=== PATIENT | female | born 1995 | race Hispanic/Latino ===

== ENCOUNTER 2022-02-14 06:57 | Inpatient (IN) | payer SELFPAY ==
[2022-02-14 07:41] LABS: Urine Blood Negative (Negative); Urine Glucose Negative (Negative); Urine Protein Negative (Negative); Urine pH 7.5 (5.0-7.0)
[2022-02-14 07:45] LABS: Absolute Lymphocytes (CBC) 2.5 K/uL (0.7-4.9); Hematocrit 38.4 % (36.0-45.0); Lymphocytes % 20.7 % (15.3-44.8); MPV 8.9 fL (7.6-11.3); RBC Red Blood Cell Count 4.58 M/uL (3.86-4.86)
[2022-02-14] MEDS ORDERED: MORPHINE 4 MG/ML SYR ONE ×2 (07:47→13:58)
[2022-02-14] MEDS ORDERED: NA CHLORIDE 0.9% 1,000 ML ONE (07:47)
[2022-02-14] MEDS ORDERED: ONDANSETRON 4 MG/2 ML VIAL ONE (07:47)
[2022-02-14] MEDS ORDERED: FAMOTIDINE 20 MG/2 ML VIAL IV ONE (07:47)
[2022-02-14 08:06] LABS: Albumin 3.9 g/dL (3.4-5.0); Bilirubin Total 0.2 mg/dL (0.2-1.0); Potassium 3.8 mmol/L (3.5-5.1); Protein, Total 7.9 g/dL (6.4-8.2)
[2022-02-14 08:09] LABS: Urine Bacteria >50 /HPF (<20); Urine Mucus 1+ /HPF (NONE SEEN); Urine RBC <5 /HPF (NONE SEEN)
--- NOTE | 2022-02-14 10:56 | RAD REPORT ---
EXAM DESCRIPTION: CT - Abdomen Pelvis W Contrast - 02/14/2022 10:41 am CLINICAL HISTORY: Abdominal pain COMPARISON: none. TECHNIQUE: Computed axial tomography of the abdomen pelvis was obtained. 100 cc Isovue-300 was admin istered intravenously. Oral contrast was not requested which limits evaluation of bowel. All CT scans are performed using dose optimization technique as appropriate and may include automated exposure control or mA/KV adjustment according to patient size. FINDINGS: Gallbladder wall is mildly thickened. The liver, spleen, pancreas, adrenal and kidneys appear unremarkable. There is no evidence of diverticulitis. Normal appendix. 3.5 centimeter right ovarian cyst. 2 centimeter left ovarian cyst. No significant free fluid Small umbilical hernia IMPRESSION: Mild gallbladder wall thickening may indicate cholecystitis 3.5 centimeter right ovarian cyst. 2 centimeter left ovarian cyst. No significant free fluid
--- NOTE | 2022-02-14 13:17 | RAD REPORT ---
EXAM DESCRIPTION: US - Abdomen Exam Limited - 02/14/2022 1:02 pm CLINICAL HISTORY: Abdominal pain. COMPARISON: None. FINDINGS: Multiple gallstones. Mild gallbladder wall thickening The biliary tree is normal caliber. IMPRESSION: Cholelithiasis Mild gallbladder wall thickening may indicate cholecystitis
--- NOTE | 2022-02-14 13:48 | EDPHYS ---
Physician Documentation [facility] Name: Ahmet Rojas Age: 26 yrs Sex: Female : 1995 Arrival Date: 02/14/2022 Time: 07:00 Bed 28 Private MD: ED Physician Courtney Sepulveda HPI: 02/14 07:28 This 26 yrs old Female presents to ER via Ambulatory with complaints of Back ma2 Pain, Abdominal Pain. 07:28 86-year-old female healthy who presents with epigastric abdominal pain history of ma2 gallbladder stone, pain is mild intermittent epigastric right upper quadrant, no fever vomiting or diarrhea. No urinary symptoms.. 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 - Social history:: Smoking status: Patient denies any tobacco usage or history of. Patient/guardian denies using alcohol, street drugs, The patient lives with family. - Family history:: not pertinent. ROS: 07:28 Constitutional: Negative for fever, chills, and weight loss. ma2 07:28 All other systems are negative. Exam: 07:28 Constitutional: This is a well developed, well nourished patient who is awake, alert, ma2 and in no acute distress. Head/Face: Normocephalic, atraumatic. Eyes: Pupils equal round and reactive to light, extra-ocular motions intact. Lids and lashes normal. Conjunctiva and sclera are non-icteric and not injected. Cornea within normal limits. Periorbital areas with no swelling, redness, or edema. ENT: Nares patent. No nasal discharge, no septal abnormalities noted. Tympanic membranes are normal and external auditory canals are clear. Oropharynx with no redness, swelling, or masses, exudates, or evidence of obstruction, uvula midline. Mucous membranes moist. Neck: Trachea midline, no thyromegaly or masses palpated, and no cervical lymphadenopathy. Supple, full range of motion without nuchal rigidity, or vertebral point tenderness. No Meningismus. Chest/axilla: Normal chest wall appearance and motion. Nontender with no deformity. No lesions are appreciated. Cardiovascular: Regular rate and rhythm with a normal S1 and S2. No gallops, murmurs, or rubs. Normal PMI, no JVD. No pulse deficits. Respiratory: Lungs have equal breath sounds bilaterally, clear to auscultation and percussion. No rales, rhonchi or wheezes noted. No increased work of breathing, no retractions or nasal flaring. Abdomen/GI: Soft, non-tender, with normal bowel sounds. No distension or tympany. No guarding or rebound. No evidence of tenderness throughout. Back: No spinal tenderness. No costovertebral tenderness. Full range of motion. Skin: Warm, dry with normal turgor. Normal color with no rashes, no lesions, and no evidence of cellulitis. MS/ Extremity: Pulses equal, no cyanosis. Neurovascular intact. Full, normal range of motion. Neuro: Awake and alert, GCS 15, oriented to person, place, time, and situation. Cranial nerves II-XII grossly intact. Motor strength 5/5 in all extremities. Sensory grossly intact. Cerebellar exam normal. Normal gait. Vital Signs: 07:19 BP 120 / 85; Pulse 70; Resp 16; Temp 97; Pulse Ox 100% ; bp 08:26 Pulse 79; Resp 18 S; Pulse Ox 100% on R/A; jd3 12:17 Pulse 82; Resp 17 S; Pulse Ox 100% on R/A; jd3 14:06 BP 107 / 72; Pulse 63; Resp 18 S; Pulse Ox 99% on R/A; jd3 15:10 BP 123 / 64; Pulse 54; Resp 18 S; Pulse Ox 100% on R/A; jd3 16:58 BP 115 / 70; Pulse 60; Resp 18 S; Pulse Ox 99% on R/A; jd3 18:44 BP 105 / 63; Pulse 64; Resp 16 S; Pulse Ox 98% on R/A; jd3 MDM: 07:21 Patient medically screened. ma2 07:28 Differential diagnosis: Fracture sprain, Due to cholecystitis versus pancreatitis ma2 versus other stone. Data reviewed: vital signs, nurses notes. Counseling: I had a detailed discussion with the patient and/or guardian regarding: the historical points, exam findings, and any diagnostic results supporting the discharge/admit diagnosis, the presence of at least one elevated blood pressure reading (>120/80) during this emergency department visit, the need for outpatient follow up. Response to treatment: the patient's symptoms have markedly improved after treatment. 13:55 ED course: patient has patient has cholelithiasis needs GI, the service not available ma2 in our hospital today we will transfer to higher level of care. 16:28 ED course: Patient does not have choledocholithiasis, given patient has possible acute ma2 cholecystitis I discussed with Dr. Naranjo he accepted the patient advised to do Zosyn and n.p.o. and admit to his service. 02/14 07:24 Order name: CBC with Diff; Complete Time: 08:12 tx2 02/14 07:24 Order name: CMP; Complete Time: 08:12 [facility] 02/14 07:24 Order name: Lipase; Complete Time: 08:12 tx2 02/14 07:24 Order name: Urine Microscopic Only; Complete Time: 08:12 [facility] 02/14 07:41 Order name: Urine Dipstick-Ancillary; Complete Time: 08:12 EDCT 02/14 08:01 Order name: Urine --Ancillary (enter results); Complete Time: 10:13 eb 02/14 07:24 Order name: Abdomen Limited US; Complete Time: 13:40 tx2 02/14 08:13 Order name: Urine Culture [facility] 02/14 10:17 Order name: CT Abd/Pelvis - IV Contrast Only; Complete Time: 12:05 [facility] 02/14 14:18 Order name: SARS-COV-2 RT PCR (Document "Date of Onset" if Symptomatic); Complete Time: eb 16:00 02/14 16:35 Order name: Basic Metabolic Panel [facility] 02/14 16:35 Order name: Basic Metabolic Panel [facility] 02/14 16:35 Order name: CBC with Automated Diff [facility] 02/14 16:35 Order name: CBC with Automated Diff [facility] 02/14 07:24 Order name: IV Saline Lock; Complete Time: 07:24 tx2 02/14 07:24 Order name: Labs collected and sent; Complete Time: 07:24 tx2 02/14 07:24 Order name: Urine Test (obtain specimen); Complete Time: 08:14 [facility] 02/14 13:42 Order name: NPO; Complete Time: 13:44 ma2 02/14 16:35 Order name: NPO EDMS Administered Medications: 07:47 Drug: Zofran (Ondansetron) 4 mg Route: IVP; Site: right antecubital; jd3 08:40 Follow up: Response: No adverse reaction jd3 07:48 Drug: NS 0.9% 1000 ml Route: IV; Rate: 1 bolus; Site: right antecubital; jd3 12:36 Follow up: Response: No adverse reaction; IV Status: Completed infusion jd3 07:48 Drug: Pepcid (famotidine) 20 mg Route: IVP; Site: right antecubital; jd3 08:40 Follow up: Response: No adverse reaction jd3 07:48 Drug: morphine 4 mg Route: IVP; Site: right antecubital; jd3 08:40 Follow up: Response: No adverse reaction; RASS: Alert and Calm (0) jd3 14:05 Drug: morphine 4 mg Route: IVP; Site: right antecubital; jd3 18:47 Follow up: Response: No adverse reaction; RASS: Alert and Calm (0) jd3 14:06 Drug: Zosyn (piperacillin-tazobactam) 3.375 grams Route: IVPB; Infused Over: 60 mins; jd3 Site: right antecubital; 15:00 Follow up: Response: No adverse reaction; IV Status: Completed infusion jd3 14:06 Drug: D5-NS 1000 ml Route: IV; Rate: 125 ml/hr; Site: right antecubital; jd3 18:47 Follow up: Response: No adverse reaction; IV Status: Infusion continued upon admission jd3 Disposition Summary: 02/14/22 16:29 Hospitalization Ordered Hospitalization Status: Inpatient Admission ma2 Provider: Jimenez Naranjo maJake Condition: Stable(02/14/22 16:29) ma2 Problem: new(02/14/22 16:29) ma2 Symptoms: are unchanged(02/14/22 16:29) ma2 Bed/Room Type: Standard ma2 Location: [facility] ER HOLD(02/14/22 18:30) eb Room Assignment: ERHOLD-(02/14/22 18:30) eb Diagnosis - Acute cholecystitis(02/14/22 16:29) ma2 Forms: - Medication Reconciliation Form ma2 - SBAR form ma2 Signatures: Dispatcher [employer] EDMS Koby Membreno, DELIVERY TECHNICIAN-C DELIVERY TECHNICIAN-Cla1 Adam Swanson, RN RN Petar Kilpatrick RN RN bp Alzahri, Mohammad, MD MD ma2 Avril Foster Raymond, MD MD rn3 Corrections: (The following items were deleted from the chart) 16:28 13:47 gi ma2 ma2 16:28 13:47 [facility] ma2 ma2 16:28 13:47 Higher level of care ma2 ma2 16:28 13:47 Stable ma2 ma2 16:28 13:47 new ma2 ma2 16:28 13:47 are unchanged ma2 ma2 16:28 13:47 Other cholelithiasis without obstruction ma2 ma2 16:28 13:47 Acute cholecystitis ma2 ma2 18:30 16:29 Telemetry/MedSurg (Inpatient) ma2 eb 18:30 16:29 ma2 eb
--- NOTE | 2022-02-14 13:48 | ER ---
Nurse's Notes [facility] Name: Ahmet Rojas Age: 26 yrs Sex: Female : 1995 Arrival Date: 02/14/2022 Time: 07:00 Bed 28 Private MD: Diagnosis: Acute cholecystitis Presentation: 02/14 07:19 Chief complaint: Patient states: EPIGASTRIC PAIN TO R FLANK WITH N/V SINCE Y/D. bp Coronavirus screen: At this time, the client does not indicate any symptoms associated with coronavirus-19. Ebola Screen: No symptoms or risks identified at this time. Initial Sepsis Screen: Does the patient meet any 2 criteria? No. Patient's initial sepsis screen is negative. Does the patient have a suspected source of infection? No. Patient's initial sepsis screen is negative. Risk Assessment: Do you want to hurt yourself or someone else? Patient reports no desire to harm self or others. Onset of symptoms was February 13, 2022. 07:19 Method Of Arrival: Ambulatory bp 07:19 Acuity: MILLIE 3 bp Triage Assessment: 07:23 General: Appears distressed, uncomfortable, Behavior is cooperative, appropriate for bp age, anxious. Pain: Complains of pain in epigastric area Pain radiates to right flank. EENT: No deficits noted. Neuro: No deficits noted. Cardiovascular: No deficits noted. Respiratory: No deficits noted. GI: Abdomen is non-distended, Reports epigastric pain, nausea, vomiting. : Reports pain in right flank(s). Derm: No deficits noted. Musculoskeletal: Circulation, motion, and sensation intact. Range of motion:. 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 - Social history:: Smoking status: Patient denies any tobacco usage or history of. Patient/guardian denies using alcohol, street drugs, The patient lives with family. - Family history:: not pertinent. Screenin:26 Abuse screen: Denies threats or abuse. Denies injuries from another. Nutritional bp screening: No deficits noted. Tuberculosis screening: No symptoms or risk factors identified. Fall Risk None identified. Assessment: 07:25 General: Appears in no apparent distress. comfortable, Behavior is calm, cooperative, jd3 appropriate for age. Pain: Complains of pain in abdomen. Neuro: Shook Agitation-Sedation Scale (RASS): 0 - Alert and Calm Level of Consciousness is awake, alert, obeys commands, Oriented to person, place, time, situation. Cardiovascular: Capillary refill < 3 seconds Patient's skin is warm and dry. Respiratory: Airway is patent Respiratory effort is even, unlabored, Respiratory pattern is regular, symmetrical, Denies cough, shortness of breath. GI: No signs and/or symptoms were reported involving the gastrointestinal system. : No signs and/or symptoms were reported regarding the genitourinary system. EENT: No signs and/or symptoms were reported regarding the EENT system. Derm: Skin is intact, Skin is dry, Skin is normal, Skin temperature is warm. Musculoskeletal: Circulation, motion, and sensation intact. Range of motion: intact in all extremities. 07:26 General: SEE TRIAGE NOTE. bp 08:26 Reassessment: Patient appears in no apparent distress at this time. Patient and/or jd3 family updated on plan of care and expected duration. Pain level reassessed. Patient is alert, oriented x 3, equal unlabored respirations, skin warm/dry/pink. Patient states feeling better. 09:42 Reassessment: Patient appears in no apparent distress at this time. Patient and/or jd3 family updated on plan of care and expected duration. Pain level reassessed. Patient is alert, oriented x 3, equal unlabored respirations, skin warm/dry/pink. 10:48 Reassessment: Patient appears in no apparent distress at this time. Patient and/or jd3 family updated on plan of care and expected duration. Pain level reassessed. Patient is alert, oriented x 3, equal unlabored respirations, skin warm/dry/pink. returned from CT. awaiting ultrasound. 12:16 Reassessment: Patient appears in no apparent distress at this time. Patient and/or jd3 family updated on plan of care and expected duration. Pain level reassessed. Patient is alert, oriented x 3, equal unlabored respirations, skin warm/dry/pink. reports continued pain, provider notified. 13:40 Reassessment: Patient appears in no apparent distress at this time. Patient and/or jd3 family updated on plan of care and expected duration. Pain level reassessed. Patient is alert, oriented x 3, equal unlabored respirations, skin warm/dry/pink. awaiting results. 15:10 Reassessment: Patient appears in no apparent distress at this time. Patient and/or jd3 family updated on plan of care and expected duration. Pain level reassessed. Patient is alert, oriented x 3, equal unlabored respirations, skin warm/dry/pink. awaiting transfer. 16:57 Reassessment: Patient appears in no apparent distress at this time. Patient and/or jd3 family updated on plan of care and expected duration. Pain level reassessed. Patient is alert, oriented x 3, equal unlabored respirations, skin warm/dry/pink. awaiting admission. 18:44 Reassessment: Patient appears in no apparent distress at this time. Patient and/or jd3 family updated on plan of care and expected duration. Pain level reassessed. Patient is alert, oriented x 3, equal unlabored respirations, skin warm/dry/pink. awaiting admission. 19:27 Reassessment: The previous nurse gave report to the "ER Holding" nurse and the pt is to jason be moved to Pod #1. The nurse informed the pt of this, as well. Vital Signs: 07:19 BP 120 / 85; Pulse 70; Resp 16; Temp 97; Pulse Ox 100% ; bp 08:26 Pulse 79; Resp 18 S; Pulse Ox 100% on R/A; jd3 12:17 Pulse 82; Resp 17 S; Pulse Ox 100% on R/A; jd3 14:06 BP 107 / 72; Pulse 63; Resp 18 S; Pulse Ox 99% on R/A; jd3 15:10 BP 123 / 64; Pulse 54; Resp 18 S; Pulse Ox 100% on R/A; jd3 16:58 BP 115 / 70; Pulse 60; Resp 18 S; Pulse Ox 99% on R/A; jd3 18:44 BP 105 / 63; Pulse 64; Resp 16 S; Pulse Ox 98% on R/A; jd3 ED Course: 07:00 Patient arrived in ED. bp1 07:21 Courtney Sepulveda MD is Attending Physician. ma2 07:21 Triage completed. bp 07:23 Adam Swanson RN is Primary Nurse. jd3 07:23 Inserted saline lock: 20 gauge in right antecubital area, using aseptic technique. jd3 Blood collected. 07:23 Arm band placed on. bp 07:26 Patient has correct armband on for positive identification. Bed in low position. Call bp light in reach. Side rails up X2. Adult w/ patient. 08:46 Urine collected:. tm3 10:43 CT Abd/Pelvis - IV Contrast Only In Process Unspecified. EDMS 13:04 Abdomen Limited US In Process Unspecified. EDMS 14:19 initiated a transfer with Shaq Pillai Rn from the [facility]. eb 14:31 COVID swab sent to lab. tm3 16:29 Jimenez Naranjo MD is Hospitalizing Provider. ma2 19:29 Patient admitted, IV remains in place. jason 19:29 No provider procedures requiring assistance completed. jason Administered Medications: 07:47 Drug: Zofran (Ondansetron) 4 mg Route: IVP; Site: right antecubital; jd3 08:40 Follow up: Response: No adverse reaction jd3 07:48 Drug: NS 0.9% 1000 ml Route: IV; Rate: 1 bolus; Site: right antecubital; jd3 12:36 Follow up: Response: No adverse reaction; IV Status: Completed infusion jd3 07:48 Drug: Pepcid (famotidine) 20 mg Route: IVP; Site: right antecubital; jd3 08:40 Follow up: Response: No adverse reaction jd3 07:48 Drug: morphine 4 mg Route: IVP; Site: right antecubital; jd3 08:40 Follow up: Response: No adverse reaction; RASS: Alert and Calm (0) jd3 14:05 Drug: morphine 4 mg Route: IVP; Site: right antecubital; jd3 18:47 Follow up: Response: No adverse reaction; RASS: Alert and Calm (0) jd3 14:06 Drug: Zosyn (piperacillin-tazobactam) 3.375 grams Route: IVPB; Infused Over: 60 mins; jd3 Site: right antecubital; 15:00 Follow up: Response: No adverse reaction; IV Status: Completed infusion jd3 14:06 Drug: D5-NS 1000 ml Route: IV; Rate: 125 ml/hr; Site: right antecubital; jd3 18:47 Follow up: Response: No adverse reaction; IV Status: Infusion continued upon admission jd3 Medication: 07:26 VIS not applicable for this client. bp Outcome: 13:47 ER care complete, transfer ordered by . ma2 16:29 Decision to Hospitalize by Provider. ma2 19:29 Admitted to 19:29 Condition: stable 02/15 11:37 Patient left the ED. jd3 Signatures: Dispatcher [employer] EDMS Pilar Mannie 3 Adam Swanson RN RN jd3 Petar Hartley RN RN Courtney Sepulveda MD MD nj2 Avril Foster Brittany bp1 O'Farrell, Brenda, RN RN jason
[2022-02-14] MEDS ORDERED: NA CHLORIDE 0.9% 100 ML IV ONE (13:56)
[2022-02-14] MEDS ORDERED: D5 0.9 NS 1,000 ML IV ONE (13:57)
[2022-02-14] MEDS ORDERED: PIPERACIL/TAZO 3.375 GM VIAL IV ONE (13:57)
[2022-02-14] MEDS ORDERED: ACETAMINOPHEN 500 MG TAB PO PRN (16:30)
[2022-02-14] MEDS ORDERED: ONDANSETRON 4 MG/2 ML VIAL IV PRN (16:30)
[2022-02-14] MEDS ORDERED: MORPHINE 2 MG/ML SYR IV PRN (16:30)
[2022-02-14] MEDS: D5 0.45 NS 1,000 ML IV SCH (17:00)
[2022-02-14 23:38] VITALS: BMI 28.3
[2022-02-15] MEDS ORDERED: NA CHLORIDE 0.9% 100 ML IV ONE ×2 (00:59→10:07)
[2022-02-15] MEDS ORDERED: PIPERACIL/TAZO 3.375 GM VIAL IV ONE ×2 (00:59→08:16)
[2022-02-15] MEDS: PIPER TAZO 3.375 GM in NA CHLORIDE 0.9% 100 ML IV SCH ×2 (01:43→09:00)
[2022-02-15] MEDS: D5 0.45 NS 1,000 ML IV SCH (01:49)
[2022-02-15] MEDS ORDERED: D5 0.45 NS 1,000 ML IV ONE (01:53)
[2022-02-15] MEDS ORDERED: MORPHINE 2 MG/ML SYR ONE (02:55)
[2022-02-15 04:18] LABS: Hematocrit 36.8 % (36.0-45.0); Lymphocytes % 23.6 % (15.3-44.8); RBC Red Blood Cell Count 4.35 M/uL (3.86-4.86)
[2022-02-15 04:46] LABS: Potassium 3.4 mmol/L (3.5-5.1)
[2022-02-15] MEDS ORDERED: Ringers Lactate 1,000 ML IV ONE (09:17)
[2022-02-15] MEDS ORDERED: propofoL 200 MG/20 ML VIAL IV ONE (09:52)
[2022-02-15] MEDS ORDERED: LIDOCAINE 2% MPF 5 ML VIAL ONE (09:52)
[2022-02-15] MEDS ORDERED: ROCURONIUM 50 MG/5 ML VIAL IV ONE (09:52)
[2022-02-15] MEDS ORDERED: FENTANYL CITR 100 MCG/2 ML ONE (09:52)
[2022-02-15] MEDS ORDERED: MIDAZOLAM HCL 2 MG/2 ML INJ ONE (09:52)
[2022-02-15] MEDS ORDERED: ONDANSETRON 4 MG/2 ML VIAL ONE ×2 (09:52→11:33)
[2022-02-15] MEDS ORDERED: dexAMETHasone 10 MG/ML VIAL ONE (09:53)
[2022-02-15] MEDS ORDERED: CELECOXIB 100 MG CAPSULE ONE (10:02)
[2022-02-15] MEDS ORDERED: ACETAMINOPHEN 500 MG TAB ONE (10:02)
[2022-02-15] MEDS ORDERED: Mastisol Adhesive Liq ONE (11:02)
[2022-02-15] MEDS ORDERED: KETOROLAC 30 MG/ML INJ ONE (11:07)
[2022-02-15] MEDS ORDERED: NEOSTIGMINE 1 MG/ML -10 ML VIAL ONE (11:08)
[2022-02-15] MEDS ORDERED: GLYCOPYRROLATE 0.2 MG/ML SYR ONE (11:08)
[2022-02-15] MEDS: HYDROMORPHONE HCL 1 MG/ML INJ ONE ×2 (11:41→11:48)
[2022-02-15 11:46] VITALS: O2SAT 100
[2022-02-15] MEDS ORDERED: PROMETHAZINE INJ 25 MG/ML AMP ONE (12:04)
[2022-02-15] MEDS ORDERED: TRAMADOL HCL 50 MG TAB ONE (12:59)
[2022-02-15 13:51] VITALS: BP 123/74; TEMP 97.8
--- NOTE | 2022-02-15 21:09 | HP ---
Date of Admission: 02/14/2022 History Of Present Illness: This is a case of a 26-year-old patient who has been having abdominal pa in, epigastric, and right upper quadrant pain for the last several months. She got to the point last night that the pain got worse and she came to the ER, diagnosed with acute cholecystitis, symptomati c cholelithiasis, and a surgical consult was obtained for admission and cholecystectomy. She denies any dysuria, hematuria, hematochezia, melena, denies any recent travel to another country, denies any family member sick at home. The patient came to the ER, but despite the treatment, she still has a Maria sign, epigastric pain with nausea. That is why she was admitted. Allergies: NONE. Medications: Tramadol. Past Medical History: Gallstones. Past Surgical History: . Social History: She does not smoke. She does not drink alcohol. Family History: Noncontributory. Review of Systems: The patient is feeling nausea, bloating, and abdominal pain. Vomiting in the past and right upper qu adrant abdominal pain. Review of system ten-point is otherwise unremarkable. Physical Examination: General: The patient is awake, alert. HEENT: Pupils are equal and reactive. Anicteric. Neck: Supple. Chest: Clear. Heart: S1 and S2. Abdomen: Soft and depressible. Epigastric right upper quadrant pain with Maria sign positive. Breasts: Deferred. Pelvic: Deferred. Rectal: Deferred. Extremities: Good capillary refill. 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 Laboratory Data: Blood work shows WBC count of 12.2, hemoglobin of 12.8, platelets of 339. Sodium i s 135, creatinine is 0.69. Urine bacteria more than 50. Urine wbc count is 5 to 10. CAT scan of th e abdomen and pelvis and ultrasound interpreted by Dr. Hernandez as cholelithiasis and cholecystitis. Assessment: A 26-year-old patient comes to us with intractable right upper quadrant abdominal pain, acute cholecystitis, symptomatic cholelithiasis. Patient wants surgery done during this admission. She also has a small umbilical hernia. The benefits, alternatives, and risks of laparoscopic and pos sible open cholecystectomy fully explained which include, but not limited to infection, bleeding, dam age to adjacent structures, anesthesia complication, choledocholithiasis, bile leak, pancreatitis, RI , and . She also understands this may not relieve any symptoms. She might need more than one s urgical intervention. She was also explained for her a ovarian cyst to follow with her alumni coordinator. RHEA Voice ID: [id number]
--- NOTE | 2022-03-22 10:43 | P.BOP ---
Preoperative diagnosis: acute cholecystitis, symptomatic cholelithiasis Postoperative diagnosis: same, umbilical hernia Primary procedure: Laparoscopic cholecystectomy Secondary procedure: umbilical hernia repair Specimen: GB Findings: as above Anesthesia: General Complications: None Transferred to: Recovery Room Condition: Good
--- NOTE | 2022-03-22 13:34 | OP ---
Date of Procedure: 02/15/2022 Surgeon: Jimenez Naranjo MD Preoperative Diagnoses: Acute cholecystitis, symptomatic cholelithiasis. Postoperative Diagnoses: Acute cholecystitis, symptomatic cholelithiasis plus umbilical hernia. Procedures: Laparoscopic cholecystectomy with umbilical hernia repair. Specimen: Gallbladder. Finding: As above. Anesthesia: General plus local. Indication: This is the case of a 26-year-old patient, who comes to us with acute cholecystitis, sym ptomatic cholelithiasis, intractable pain, also found to have an umbilical hernia. The benefits, alt ernatives, and risks of laparoscopic possible open cholecystectomy with umbilical hernia repair fully explained, which include, but not limited to infection, bleeding, damage to adjacent structures, ane sthesia complication, choledocholithiasis, bile leak, pancreatitis, MD, and even . She also und erstands this may not relieve any symptoms. She may need more than one surgical intervention. She u nderstood, signed a consent. Procedure In Detail: The patient was brought to the operating room, placed in supine position. Anes thesia was done without complication. Abdominal area was prepped and draped in the usual sterile fas hion. Marcaine 0.5% was injected for local anesthetic followed by sharp incision of the skin in the periumbilical region. We immediately noticed the umbilical hernia present, the omentum coming to the hernia sac. Hernia sac was opened and removed. Omental retracted after full inspection and seemed to be viable. Fascial edges were cleaned. We proceeded to place Vicryl #1 inside of the fascia. Gomez sson trocar was carefully introduced. Pneumoperitoneum was obtained. I placed 3 more trocars, 5 mm each one of them in the epigastric right upper quadrant area under direct visualization. This allowe d me to put a grasper in the fundus of the gallbladder, another grasper in the infundibulum, retracti ng the gallbladder in the inferolateral fashion, exposing the triangle of Calot and obtaining critica l view. Cystic duct and cystic artery were clearly isolated, freed circumferentially and a connectio n between those and the gallbladder were clearly identified. I proceeded to ligate those by using 3 clips proximal, 1 clip distal, ligation in middle. Same was done with the cystic artery. No bile le ak. No bleeding. The gallbladder was removed from the liver using Bovie cauterizer and removed from abdominal cavity using EndoCatch through the umbilical incision. The area was inspected once again. No bile leak. No bleeding. At that moment, I proceeded to remove the trocars under direct vision. Deflated pneumoperitoneum. Closed the fascia with 1 Vicryl and umbilical hernia with #1 Vicryl. I rrigated subcutaneous tissue, closed that with 3-0 chromic and skin approximated. Sponge count and i nstrument counts correct. The patient tolerated the procedure well. The patient was sent to recover y in stable condition. KIM/MEGHAN Voice ID: [id number] Report ID: [id number]
--- NOTE | 2022-03-22 13:34 | DS ---
Date of Discharge: 02/15/2022 Diagnoses: Acute cholecystitis, symptomatic cholelithiasis, umbilical hernia. Procedure: Laparoscopic cholecystectomy, umbilical hernia repair. Disposition: Home. Activity: As tolerated. No heavy lifting. Plan: Follow up in my office in 1 week. Call for appointment at [phone]. Keep area dry for 48 bert rs, then may shower. RHEA Voice ID: [id number] Report ID: [id number]
== END 2022-02-15 13:06 | disposition home or self-care (01) | DRG 419 ==
LOC: ER 06:57 → ERHOLD 16:30
PROVIDERS: ADMIT Surgery; ATTEND Surgery
PROC: 0WQF0ZZ Repair Abdominal Wall, Open Approach (ICD-10-PCS; 2022-02-15)
PROC: 0FT44ZZ Resection of Gallbladder, Percutaneous Endoscopic Approach (ICD-10-PCS; principal; 2022-02-15 10:45)
DX: K80.00 Calculus of gallbladder with acute cholecystitis without obstruction (principal); K42.9 Umbilical hernia without obstruction or gangrene; N83.209 Unspecified ovarian cyst, unspecified side; Z20.822 Contact with and (suspected) exposure to COVID-19
CPT/HCPCS: 36415; 74177; 76705; 80048; 80053; 81003; 81015; 81025; 83690; 85025; 87086; 87088; 88302; 88304; 96361; 96365; 96366; 96368; 96375; 99285; J1100; J1170; J2250; J2270; J2405; J2543; J2550; J2704; J2710; J3010; J3490; J7030; J7042; J7120; J7799; Q9967; U0003

== ENCOUNTER 2022-02-17 14:35 | Emergency (ER) | payer SELFPAY ==
--- OUTSIDE RECORDS SUMMARY | 2022-02-17 14:39 | XMS REPORT | Continuity of Care Document ---
:1995 Author Organization [facility] t Address [address] [place] [address] Care Team Providers Name Role Phone PCP, DOES NOT HAVE A Primary Care Physician Unavailable BRUCE Attending Clinician Unavailable Florencia CRESPO Attending Clinician Unavailable Milli SILVA Attending Clinician Unavailable Srinivasa Stewart Attending Clinician Bruce CORDOVA Attending Clinician Ramila BURNETTE Attending Clinician Unavailable Attending Clinician Unavailable BRUCE Admitting Clinician Unavailable ANNMARIE Admitting Clinician Unavailable Payers Payer Name Policy Type Policy Number Effective Date Expiration Date S adolfo MEDICAID PENDING PENDING 2021 00:00:00 Problems Condition Condition Condition Status Onset Resolution Last Treating Co mments Source Name Details Category Date Date Treatment Clinician Date Gallstone Gallstone Disease Active Uni vers pancreatit pancreatit 8-30 it y of is is 00:00: [place] 00 [facility] Allergies, Adverse Reactions, Alerts Allergy Allergy Status Severity Reaction(s) Onset Inactive Treating Comm ents Source Name Type Date Date Clinician NO KNOWN Drug Active Univers ALLERGIE Class ity of S [facility] Social History Social Habit Start Date Stop Date Quantity Comments Source Exposure to Not sure [facility] SARS-CoV-2 (event) Medica l Branch Tobacco use and 2021-06-01 2021-06-01 Never used [facility] exposure 00:00:00 00:00:00 Medical [place] Sex Ass[birth year] [facility] 00:00:00 00:00:00 Medical Branch Smoking Status Start Date Stop Date Source Never smoker [facility] Branch Medications Ordered Filled Start Stop Current Ordering Indication Dosage Frequency Signature Comments Components Source Medication Medication Date Date Medication? Clinician (SIG) Name Name traMADoL Yes [id number] 50mg Take 1 Univers (ULTRAM) 50 9-05 tablet by ity of mg tablet 00:00: mouth [place] 00 every 6 Medical (six) Branch hours as needed for Pain (scale 7-10). Indication s: acute pain ondansetron Yes [id number] 4mg Take 1 Univers (ZOFRAN) 4 9-05 tablet by ity of mg tablet 00:00: mouth [place] 00 every 8 Medical (eight) Branch hours as needed for Nausea and Vomiting (N/V). traMADoL Yes [id number] 50mg Take 1 Univers (ULTRAM) 50 9-05 tablet by ity of mg tablet 00:00: mouth [place] 00 every 6 Medical (six) Branch hours as needed for Pain (scale 7-10). Indication s: acute pain ondansetron Yes [id number] 4mg Take 1 Univers (ZOFRAN) 4 9-05 tablet by ity of mg tablet 00:00: mouth [place] 00 every 8 Medical (eight) Branch hours as needed for Nausea and Vomiting (N/V). acetaminoph 2021- No [id number] 650mg Take 2 Univers en 325 mg 06-03 tablets by ity of tablet 00:00: 04:59 mouth [place] 00 :00 every 6 Medical (six) Branch hours as needed for Pain (scale 4-6). acetaminoph 2021- No [id number] 650mg Take 2 Univers en 325 mg 06-03 tablets by ity of tablet 00:00: 04:59 mouth [place] 00 :00 every 6 Medical (six) Branch hours as needed for Pain (scale 4-6). Vital Signs Vital Name Observation Time Observation Value Comments Source Systolic blood 2021-07-01 18:11:00 120 mm[Hg] Univer sity [facility] [place] [facility] Diastolic blood 2021-07-01 18:11:00 74 mm[Hg] [facility] 2021-07-01 18:11:00 71 /min [facility] Body temperature 2021-07-01 18:11:00 36.17 Isabella [facility] Respiratory rate 2021-07-01 18:11:00 18 /min [facility] Body weight 2021-07-01 18:11:00 73.755 kg [facility] BMI 2021-07-01 18:11:00 30.72 kg/m2 [facility] Oxygen saturation in 2021-07-01 18:11:00 98 /min [facility] Arterial blood by [facility] Pulse oximetry Branch Procedures This patient has no known procedures. Encounters Start End Encounter Admission Attending Care Care Encounter Source Date/Time Date/Time Type Type Clinicians Facility Department ID 2021-08-04 Outpatient R BRUCE [facility] MELCHOR [id number] Univers 05:20:14 RIVER [facility] 2021-11-09 2021-11-09 Outpatient R CHERIE [facility] [id number] Univers 15:00:00 15:00:00 MYA [id number] ity o [facility] 2021-11-09 2021-11-09 [facility] [id number] Univers 15:00:00 15:00:00 MYA ity o [facility] 2021-11-09 2021-11-09 Outpatient R [facility] [id number] Univers 14:30:00 14:30:00 [facility] 2021-10-14 2021-10-14 Outpatient R SHIRA [facility] [id number] Univers 10:15:00 10:15:00 CANDI [id number] ity o [facility] 2021-10-14 2021-10-14 Outpatient R SHIRA [facility] [id number] Univers 10:15:00 10:15:00 JAMESNDA ity o [facility] 2021-09-14 2021-09-14 Outpatient R [facility] [id number] Univers 07:30:00 07:30:00 [id number] [facility] 2021-09-14 2021-09-14 [facility] [id number] Univers 07:30:00 07:30:00 CANDI whyte o [facility] 2021-07-16 2021-07-16 Outpatient R [facility] [id number] Univers 08:30:00 08:30:00 [id number] isabell [facility] 2021-07-16 2021-07-16 Outpatient R BRUCE [facility] [id number] Univers 08:30:00 08:30:00 RIVER whyte [facility] 2021-07-02 2021-07-02 Prep For [facility] [id number] Univers 00:00:00 00:00:00 Surgery [place] [id number] itmeghann [id number] [id number] [facility] 204 [facility] 2021-07-01 2021-07-01 [facility] [id number] Univers 13:30:00 14:15:51 [place] [facility] 2021-07-01 2021-07-01 [facility] [id number] Univers 12:56:00 13:11:00 Visit [place] [id number] i ty [id number] [id number] [facility] 188 [facility] 2021-06-30 2021-06-30 [facility] [id number] Univers 16:00:00 16:00:00 RIVER shadymeghann [facility] 2021-06-07 2021-06-07 Emergency X VASILE [facility] ERT [id number] Univers 04:37:00 07:00:00 CHANTELL whyte [facility] 2021-05-31 2021-06-01 Emergency X [facility] ERT [id number] Univers 23:45:00 04:17:00 HALLIE whyte [facility] 2021-05-31 2021-05-31 Emergency X SINGER [facility] ERT [id number] Univers 23:45:00 23:45:00 HALLIE [facility] Results This patient has no known results.
[2022-02-17 16:43] LABS: Absolute Lymphocytes (CBC) 1.3 K/uL (0.7-4.9); Hematocrit 38.3 % (36.0-45.0); Lymphocytes % 16.8 % (15.3-44.8); MPV 8.6 fL (7.6-11.3); RBC Red Blood Cell Count 4.48 M/uL (3.86-4.86)
[2022-02-17 16:43] LABS: Urine Blood 3+ (Negative); Urine Glucose Negative (Negative); Urine Protein Negative (Negative)
[2022-02-17 17:06] LABS: Albumin 3.9 g/dL (3.4-5.0); Bilirubin Total 1.5 mg/dL (0.2-1.0); Potassium 3.7 mmol/L (3.5-5.1); Protein, Total 7.7 g/dL (6.4-8.2)
--- NOTE | 2022-02-17 17:13 | RAD REPORT ---
EXAM DESCRIPTION: CTAbdomen Pelvis W Contrast - 02/17/2022 5:04 pm CLINICAL HISTORY: Abdominal pain, post-op COMPARISON: Abdomen Pelvis W Contrast dated 02/14/2022; Abdomen Exam Limited dated 02/14/2022 TECHNIQUE: CT of the abdomen and pelvis was performed. All CT scans are performed using dose optimization technique as appropriate and may include automated exposure control or mA/KV adjustment according to patient size. FINDINGS: Lower chest: No acute abnormality. Liver: Increased intrahepatic biliary ductal dilatation. Biliary: Surgical changes from recent cholecystectomy. Increased extrahepatic biliary ductal dilatati on. The extrahepatic common bile duct measures up to 13 millimeters, previously 7 millimeters. Small volume of fluid in the gallbladder fossa which is likely postoperative. Stomach: No significant focal abnormality. Duodenum: No significant focal abnormality. Pancreas: No significant abnormality. Spleen: No significant abnormality. Adrenal: No suspicious lesions. Kidney/ureter: No hydronephrosis. No renal calculi. Retroperitoneum: No retroperitoneal adenopathy. Vascular: No aneurysm. Bowel: Normal appendix.. Peritoneum: No ascites or free air. Bladder: Grossly unremarkable. Reproductive: Complex cystic structures in the pelvis noted, presumably ovarian. Trace free fluid. Bones: No acute fracture. Other: n/a IMPRESSION: Interval cholecystectomy. Increased intra- and extrahepatic biliary ductal dilatation co ncerning for choledocholithiasis. Consider MRCP for further evaluation.
[2022-02-17] MEDS ORDERED: NA CHLORIDE 0.9% 1,000 ML ONE (17:23)
[2022-02-17] MEDS ORDERED: FENTANYL CITR 100 MCG/2 ML ONE ×3 (17:23→21:46)
[2022-02-17] MEDS ORDERED: ONDANSETRON 4 MG/2 ML VIAL ONE (17:23)
--- NOTE | 2022-02-17 19:54 | RAD REPORT ---
EXAM DESCRIPTION: MRI - Cholangiogram - 02/17/2022 7:39 pm CLINICAL HISTORY: abdominal pain, elevated ast alt COMPARISON: Abdomen Pelvis W Contrast dated 09/26/2021; Abdomen Pelvis W Contrast dated ; Abdomen Pelvis W Contrast dated 02/17/2021; Abdomen Pelvis W Contrast dated 10/25/2019No compari sons FINDINGS: Three-dimensional MRCP was performed using maximum intensity projection reconstruction on the same work station. As noted on the CT, there is intra and extrahepatic biliary duct dilatation. The common bile duct annalee sures 9 millimeters. The common hepatic duct measures over 1 cm. There is a dilated cystic duct remna nt. No evidence of choledocholithiasis or mass. Changes of recent cholecystectomy Limited T2 sequences through the abdomen demonstrates no bulky adenopathy, significant free fluid or abscess. IMPRESSION: Negative for choledocholithiasis despite worsening intra and extrahepatic biliary ductal dilatation. The etiology is unclear. ERCP may be necessary both for further evaluation and possible stent placement.
[2022-02-17] MEDS ORDERED: NA CHLORIDE 0.9% 100 ML IV ONE (20:44)
[2022-02-17] MEDS ORDERED: PIPERACIL/TAZO 3.375 GM VIAL IV ONE (20:45)
--- NOTE | 2022-02-17 21:24 | ER ---
Nurse's Notes [facility] Name: Ahmet Rojas Age: 26 yrs Sex: Female : 1995 Arrival Date: 02/17/2022 Time: 14:37 Bed 7 Private MD: Diagnosis: Choledocholithiasis Presentation: 02/17 14:45 Chief complaint: Patient states: complains of post surgical pain. patient had her ap3 gallbladder removed 2 days ago in our facility. Coronavirus screen: At this time, the client does not indicate any symptoms associated with coronavirus-19. Ebola Screen: No symptoms or risks identified at this time. Initial Sepsis Screen: Does the patient meet any 2 criteria? No. Patient's initial sepsis screen is negative. Does the patient have a suspected source of infection? No. Patient's initial sepsis screen is negative. Risk Assessment: Do you want to hurt yourself or someone else? Patient reports no desire to harm self or others. Onset of symptoms was February 17, 2022. 14:45 Method Of Arrival: Wheelchair ap3 14:45 Acuity: MILLIE 3 ap3 Triage Assessment: 14:48 General: Appears uncomfortable, Behavior is restless. Pain: Complains of pain in ap3 abdomen Pain currently is 10 out of 10 on a pain scale. Pain began gradually, 1 day ago. Neuro: Level of Consciousness is awake, alert, obeys commands, Oriented to person, place, time, situation, Speech is normal. Respiratory: Airway is patent Respiratory effort is even, unlabored. Derm: Wound noted abdomen Other: Xs 4 surgical incisions. Historical: - Allergies: 17:31 No Known Allergies; tw2 - PMHx: 14:47 gallstone; ap3 - PSHx: 14:47 section; Cholecystectomy; ap3 - Immunization history:: Client reports receiving the 2nd dose of the Covid vaccine. - Social history:: Smoking status: Patient denies any tobacco usage or history of. Screenin:49 Abuse screen: Denies threats or abuse. Nutritional screening: No deficits noted. ap3 Tuberculosis screening: No symptoms or risk factors identified. 17:31 Fall Risk None identified. tw2 Assessment: 17:30 Reassessment: Patient and/or family updated on plan of care and expected duration. Pain tw2 level reassessed. Patient is alert, oriented x 3, equal unlabored respirations, skin warm/dry/pink. Patient states symptoms have not improved. Neuro: No deficits noted. Respiratory: No deficits noted. GI: Reports lower abdominal pain, upper abdominal pain. 17:39 Reassessment: Dr. Naranjo at bedside for consult. Dr. Naranjo removed taped dressing. tw2 no s/s infection. steristrips still in place from dahlia. per Dr. Naranjo MRCP pending if stones we will transfer if no stones we will keep at our facility. pt to remain NPO. pt aware. 18:20 Reassessment: pt requesting to go to restroom at this time via w/c. tw2 18:50 Reassessment: pt requesting to go to restroom at this time via w/c. tw2 18:57 Reassessment: pt ambulates back from restroom at this time, nad. tw2 20:00 Reassessment: Patient and/or family updated on plan of care and expected duration. Pain ll3 level reassessed. Patient is alert, oriented x 3, equal unlabored respirations, skin warm/dry/pink. Pt c/o abdominal pain, ERP notified, medicated as ordered. Patient states symptoms have not improved. 21:18 Reassessment: Patient and/or family updated on plan of care and expected duration. Pain ll3 level reassessed. Patient is alert, oriented x 3, equal unlabored respirations, skin warm/dry/pink. Patient states symptoms have not improved. 22:27 Reassessment: Patient and/or family updated on plan of care and expected duration. Pain ll3 level reassessed. Patient is alert, oriented x 3, equal unlabored respirations, skin warm/dry/pink. Pt states pain medicine has not helped, c/o abdominal pain 10/10, ERP notified, medicated as ordered. Vital Signs: 14:45 BP 98 / 60; Pulse 62; Resp 17; Temp 98.7; Pulse Ox 100% ; Weight 77.11 kg; Height 5 ft. ap3 4 in. (165 cm); 17:30 BP 126 / 76; Pulse 87; Resp 17; Pulse Ox 98% on R/A; Pain 8/10; tw2 18:55 BP 123 / 76; Pulse 66; Resp 17; Pulse Ox 100% on R/A; tw2 20:04 BP 136 / 80; Pulse 65; Resp 17; Pulse Ox 97% on R/A; ll3 21:17 BP 145 / 93; Pulse 78; Resp 18; Pulse Ox 100% on R/A; ll3 22:00 BP 126 / 73; Pulse 65; Resp 17; Pulse Ox 100% on R/A; ll3 14:45 Body Mass Index 28.32 (77.11 kg, 165 cm) ap3 ED Course: 14:37 Patient arrived in ED. am2 14:42 Kiko Pruett PA is PHCP. jmm 14:42 Bobby Britt DO is Attending Physician. jmm 14:47 Triage completed. ap3 14:49 Arm band placed on right wrist. ap3 16:14 Bed in low position. Side rails up X2. hall monitor on. Pulse ox on. Warm blanket tw2 given. 17:06 CT Abd/Pelvis - IV Contrast Only In Process Unspecified. EDMS 17:13 Bonita Garcia, RN is Primary Nurse. tw2 19:08 Primary Nurse role handed off by Bonita Garcia, CATRACHO tw2 19:26 Dave Dubon, CATRACHO is Primary Nurse. as6 19:33 Cholangiogram In Process Unspecified. EDMS 20:15 initiated a transfer with Shaq from [facility] Transfer [place]. mw2 20:20 [facility] denied due to capacity. mw2 20:26 initiated a transfer with [facility]. [facility] denied due to [facility] capacity. 20:27 initiated a transfer with Rose Marie from [facility]. mw2 21:17 Inserted saline lock: 22 gauge in left antecubital area, using aseptic technique. ll3 21:19 administrative approval given by Rose Marie Koroma/ patient has been accepted to [address] [place]/ Dr. Bright accepted the patient in transfer/ report to be called to [phone]. 22:32 No provider procedures requiring assistance completed. Patient transferred, IV remains ll3 in place. No redness/swelling at site. Administered Medications: 17:27 Drug: NS 0.9% 1000 ml Route: IV; Rate: 1 bolus; Site: right antecubital; tw2 18:20 Follow up: Response: No adverse reaction; IV Status: Completed infusion; IV Intake: tw2 1000ml 17:27 Drug: Zofran (Ondansetron) 4 mg Route: IVP; Site: right antecubital; tw2 18:58 Follow up: Response: No adverse reaction tw2 17:29 Drug: fentaNYL (PF) 25 mcg Route: IVP; Site: right antecubital; tw2 18:58 Follow up: Response: No adverse reaction; Pain is decreased; RASS: Alert and Calm (0) tw2 19:56 Drug: fentaNYL (PF) 50 mcg Route: IVP; Site: right antecubital; ll3 21:16 Follow up: Response: No adverse reaction; No change in condition ll3 21:16 Drug: Zosyn (piperacillin-tazobactam) 3.375 grams Route: IVPB; Infused Over: 60 mins; ll3 Site: left antecubital; 22:21 Follow up: Response: No adverse reaction; IV Status: Completed infusion; IV Intake: ll3 100ml 21:46 Drug: fentaNYL (PF) 25 mcg Route: IVP; Site: left antecubital; ll3 22:21 Follow up: Response: No adverse reaction; Pain is unchanged, physician notified ll3 22:29 Drug: Dilaudid (HYDROmorphone) 1 mg Route: IVP; Site: left antecubital; ll3 22:29 Follow up: Response: No adverse reaction; Medication administered at discharge. ll3 Medication: 14:49 VIS not applicable for this client. ap3 Intake: 18:20 IV: 1000ml; Total: 1000ml. tw2 22:21 IV: 100ml; Total: 1100ml. ll3 Outcome: 21:24 ER care complete, transfer ordered by MD. pope 22:32 Transferred by ground EMS to [facility], Transfer form completed. ll3 22:32 Condition: stable 22:32 Discharge instructions given to EMS, Instructed on the need for transfer, Demonstrated understanding of instructions. 22:33 Patient left the ED. ll3 Signatures: Dispatcher [employer] EDMS Kiko Pruett PA PA jmm Wise, Tara, RN RN tw2 Deborah Hilario am2 Deborah Deluca RN RN ap3 Vin Jacobson 2 Dave Dubon RN RN as6 Loubet, Lynsea, RN RN ll3 Corrections: (The following items were deleted from the chart) 20:04 19:50 Reassessment: Patient and/or family updated on plan of care and expected ll3 duration. Pain level reassessed. Patient is alert, oriented x 3, equal unlabored respirations, skin warm/dry/pink. Pt c/o abdominal pain, ERP notified, medicated as ordered. Patient states symptoms have not improved. ll3 22:05 20:27 initiated a transfer with Michaelle from [facility] mw2
--- NOTE | 2022-02-17 21:25 | EDPHYS ---
Physician Documentation [facility] Name: Ahmet Rojas Age: 26 yrs Sex: Female : 1995 Arrival Date: 02/17/2022 Time: 14:37 Bed 7 Private MD: ED Physician Bobby Britt HPI: 02/17 14:47 This 26 yrs old Female presents to ER via Wheelchair with complaints of Post [facility] Surgical Pain - cholecystitis. 14:47 The patient presents with abdominal pain. Onset: The symptoms/episode began/occurred jmm acutely, this morning. The symptoms do not radiate. Associated signs and symptoms: Pertinent positives: nausea and vomiting, Pertinent negatives: diarrhea. The symptoms are described as achy, sharp. Modifying factors: The symptoms are alleviated by nothing, the symptoms are aggravated by nothing. This is a 26-year-old female 2 days status post laparoscopic cholecystectomy which was performed by Dr. Naranjo. Patient states she developed acute onset abdominal pain with vomiting early this morning. Last NPO was around 9 AM this morning.. Historical: - Allergies: 17:31 No Known Allergies; tw2 - PMHx: 14:47 gallstone; ap3 - PSHx: 14:47 section; Cholecystectomy; ap3 - Immunization history:: Client reports receiving the 2nd dose of the Covid vaccine. - Social history:: Smoking status: Patient denies any tobacco usage or history of. ROS: 14:47 Constitutional: Negative for fever, chills, and weight loss, Cardiovascular: Negative jmm for chest pain, palpitations, and edema, Respiratory: Negative for shortness of breath, cough, wheezing, and pleuritic chest pain. 14:47 Abdomen/GI: Positive for abdominal pain, nausea and vomiting. 14:47 All other systems are negative. Exam: 14:47 Constitutional: This is a well developed, well nourished patient who is awake, alert, jmm and in no acute distress. Head/Face: atraumatic. Eyes: EOMI, no conjunctival erythema appreciated ENT: Moist Mucus Membranes Neck: Trachea midline, Supple Chest/axilla: Normal chest wall appearance and motion. Cardiovascular: Regular rate and rhythm. No edema appreciated Respiratory: Normal respirations, no respiratory distress appreciated 14:47 Back: Normal ROM Skin: General appearance color normal MS/ Extremity: Moves all extremities, no obvious deformities appreciated, no edema noted to the lower extremities Neuro: Awake and alert Psych: Behavior is normal, Mood is normal, Patient is cooperative and pleasant 14:47 Abdomen/GI: Inspection: abdomen appears normal, Bowel sounds: normal, Palpation: soft, moderate abdominal tenderness, in the right upper quadrant and right lower quadrant. Vital Signs: 14:45 BP 98 / 60; Pulse 62; Resp 17; Temp 98.7; Pulse Ox 100% ; Weight 77.11 kg; Height 5 ft. ap3 4 in. (165 cm); 17:30 BP 126 / 76; Pulse 87; Resp 17; Pulse Ox 98% on R/A; Pain 8/10; tw2 18:55 BP 123 / 76; Pulse 66; Resp 17; Pulse Ox 100% on R/A; tw2 20:04 BP 136 / 80; Pulse 65; Resp 17; Pulse Ox 97% on R/A; ll3 21:17 BP 145 / 93; Pulse 78; Resp 18; Pulse Ox 100% on R/A; ll3 22:00 BP 126 / 73; Pulse 65; Resp 17; Pulse Ox 100% on R/A; ll3 14:45 Body Mass Index 28.32 (77.11 kg, 165 cm) ap3 MDM: 14:47 Patient medically screened. [facility] 21:22 Data reviewed: vital signs, nurses notes. Counseling: I had a detailed discussion with niko the patient and/or guardian regarding: the historical points, exam findings, and any diagnostic results supporting the discharge/admit diagnosis, lab results, radiology results, the need to transfer to another facility. ED course: I discussed the patient's findings with Dr. Naranjo whom recommended transfer due to lack of ERCP. We initially attempted to transfer to [facility] at the [facility] as well as other [facility], I declined due to saturation. I discussed the patient with Dr. Wing at [facility] whom accepted the patient for transfer at the [facility].. 02/17 14:48 Order name: CBC with Diff; Complete Time: 16:44 [facility] 02/17 14:48 Order name: CMP; Complete Time: 17:15 [facility] 02/17 14:48 Order name: Lipase; Complete Time: 17:15 [facility] 02/17 16:43 Order name: Urine --Ancillary (enter results); Complete Time: 17:15 02/17 16:43 Order name: Urine Dipstick-Ancillary; Complete Time: 16:44 [facility] 02/17 20:12 Order name: COVID-19 SARS RT PCR (Document "Date of Onset" if Symptomatic); Complete ll3 Time: 22:24 02/17 14:49 Order name: CT Abd/Pelvis - IV Contrast Only; Complete Time: 17:15 [facility] 02/17 17:40 Order name: Cholangiogram; Complete Time: 19:59 [facility] 02/17 14:48 Order name: IV Saline Lock; Complete Time: 17:14 [facility] 02/17 14:48 Order name: Labs collected and sent; Complete Time: 17:29 [facility] 02/17 14:48 Order name: Urine Dipstick-Ancillary (obtain specimen); Complete Time: 19:26 [facility] 02/17 14:48 Order name: Urine Test (obtain specimen); Complete Time: 19:26 [facility] 02/17 17:49 Order name: NPO; Complete Time: 19:26 tw2 Administered Medications: 17:27 Drug: NS 0.9% 1000 ml Route: IV; Rate: 1 bolus; Site: right antecubital; tw2 18:20 Follow up: Response: No adverse reaction; IV Status: Completed infusion; IV Intake: tw2 1000ml 17:27 Drug: Zofran (Ondansetron) 4 mg Route: IVP; Site: right antecubital; tw2 18:58 Follow up: Response: No adverse reaction tw2 17:29 Drug: fentaNYL (PF) 25 mcg Route: IVP; Site: right antecubital; tw2 18:58 Follow up: Response: No adverse reaction; Pain is decreased; RASS: Alert and Calm (0) tw2 19:56 Drug: fentaNYL (PF) 50 mcg Route: IVP; Site: right antecubital; ll3 21:16 Follow up: Response: No adverse reaction; No change in condition ll3 21:16 Drug: Zosyn (piperacillin-tazobactam) 3.375 grams Route: IVPB; Infused Over: 60 mins; ll3 Site: left antecubital; 22:21 Follow up: Response: No adverse reaction; IV Status: Completed infusion; IV Intake: ll3 100ml 21:46 Drug: fentaNYL (PF) 25 mcg Route: IVP; Site: left antecubital; ll3 22:21 Follow up: Response: No adverse reaction; Pain is unchanged, physician notified ll3 22:29 Drug: Dilaudid (HYDROmorphone) 1 mg Route: IVP; Site: left antecubital; ll3 22:29 Follow up: Response: No adverse reaction; Medication administered at discharge. ll3 Disposition: 22:08 Co-signature as Attending Physician, Bobby VASQUEZ was immediately available on-site ms3 in the Emergency Department for consultation in the care of the patient. . Disposition Summary: 02/17/22 21:24 Transfer Ordered Transfer Location: [facility] Reason: Higher level of care [facility] Condition: Stable [facility] Problem: new [facility] Symptoms: are unchanged [facility] Accepting Physician: Dr. Wing(02/17/22 22:33) ll3 Diagnosis - Choledocholithiasis [facility] Discharge Instructions: - Discharge Summary Sheet tw2 Forms: - Medication Reconciliation Form [facility] - SBAR form tw2 Signatures: Dispatcher [employer] EDMS Kiko Pruett PA PA jmm Bonita Garcia, RN RN tw2 Deborah Deluca RN RN ap3 Bobby Britt DO DO ms3 Kiki Valle RN RN ll3 Corrections: (The following items were deleted from the chart) 22:33 21:24 Dr. Wing [facility]
[2022-02-17] MEDS ORDERED: HYDROMORPHONE HCL 1 MG/ML INJ ONE (22:30)
[2022-02-17 23:22] VITALS: TEMP 98.7
[2022-02-17 23:29] VITALS: O2SAT 100
[2022-02-17 23:33] VITALS: BP 126/73
== END 2022-02-17 22:33 | disposition short-term general hospital (02) ==
LOC: ER 14:35
DX: K80.50 Calculus of bile duct without cholangitis or cholecystitis without obstruction (principal); Z90.49 Acquired absence of other specified parts of digestive tract
CPT/HCPCS: 36415; 74177; 74181; 80053; 81003; 81025; 83690; 85025; 99285; J1170; J2405; J2543; J3010; J7030; Q9967; U0003